=== PATIENT | male | born 1995 | race Two or more races ===

== ENCOUNTER 2021-05-15 09:22 | Emergency (ER) | payer SELFPAY ==
[~2021-05-15] VITALS: Ht 170.2 cm; Wt 81.6 kg
[2021-05-15 10:12] VITALS: BP 121/79
[2021-05-15] MEDS ORDERED: TETRACAINE HCL 0.5% OPTH(EYE) SOLN 4ML EACHEYE ONE (10:15)
[2021-05-15] MEDS ORDERED: FLUORESCEIN SOD OPTH TEST STRIP OP ONE (10:15)
== END 2021-05-15 10:55 | disposition home or self-care (01) ==
LOC: ER 09:22
DX: S05.01XA Injury of conjunctiva and corneal abrasion without foreign body, right eye, initial encounter (principal); X58.XXXA Exposure to other specified factors, initial encounter; Y93.89 Activity, other specified; Y92.89 Other specified places as the place of occurrence of the external cause; Y99.8 Other external cause status